=== PATIENT | male | born 1995 | race Caucasian/White ===

== ENCOUNTER 2019-03-31 01:08 | Emergency (ER) | payer BC ==
[~2019-03-31] VITALS: Ht 177.8 cm; Wt 104.5 kg
[2019-03-31 01:12] VITALS: Ht 177.8 cm; Wt 104.5 kg
[2019-03-31 03:09] LABS: BASOPHILS 0.4 % (0-2); EOSINOPHILS 1.8 % (0-7); HEMATOCRIT 44.7 % (42.0-54.0); IMMATURE GRANULOCYTES 0.3 % (0-5); MCH 32.3 pg (26.0-34.0); MCHC 35.8 g/dL (31.0-37.0); MCV 90.1 fL (80.0-100.0); MEAN PLATELET VOLUME 9.9 fL (7.4-10.4); MONOCYTES 8.5 % (2-11); PLATELET COUNT 267 10x3/uL (130-400); RBC 4.96 10x6/uL (4.20-6.10); RDW 12.1 % (11.5-14.5); WBC 9.7 10x3/uL (4.8-10.8)
[2019-03-31] MEDS ORDERED: ULTRAM50 MG PO (04:21)
[2019-03-31 04:36] VITALS: BP 117/66
== END 2019-03-31 04:36 | disposition home or self-care (01) ==
LOC: D.ER 01:08
PROVIDERS: Emergency Medicine
DX: F41.9 Anxiety disorder, unspecified (principal); Y04.2XXA Assault by strike against or bumped into by another person, initial encounter; Y93.89 Activity, other specified; Y92.89 Other specified places as the place of occurrence of the external cause